=== PATIENT | male | born 1990 | race American Indian/Alaskan Native ===

== ENCOUNTER 2020-07-07 14:28 | Emergency (ER) | payer SELFPAY ==
--- NOTE | 2020-07-07 17:12 | Emergency Department Report ---
Chief Complaint: Back Pain/Injury Stated Complaint: BACK PAINS Time Seen by Provider: 07/07/20 17:04 - HPI History of Present Illness: She is a 29-year-old male presents emergency room complaints of right lower back pain that began a week ago. 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 He states he frequently does heavy lifting. He denies any fall or injury. He denies any fever, nausea, vomiting, diarrhea, urinary symptoms, dark urine, generalized body aches, numbness, weakness, bowel or bladder incontinence. No past medical history. No allergies to medications. He is ambulating without difficulty. Vitals are stable On exam: Non toxic appearing, no acute distress atraumatic, normocephalic normal appearance of the eyes, EOMI, no periorbital edema or ecchymosis moist mucus membranes regular heart rate and rhythm, no gallops, no rubs, no murmurs breath sounds are clear bilaterally, no w/r/r, no stridor, no research S, no accessory muscle use Right-sided lumbar paraspinal muscular tenderness palpation, no midline C-spine, T-spine, L-spine tenderness palpation, no step-offs, no deformities, full range of motion A&O x4, no focal neuro deficit, sensation intact throughout, 5 out of 5 muscle strength in the bilateral upper extremities and lower extremities, normal gait skin is warm, dry, intact Symptoms appear most consistent with mild lumbar strain Patient has no red flag warning signs of back pain, no trauma, no unexplained weight loss, no neuro deficits, age is not greater than 50, no fever, no IV drug use, no steroid use, no history of cancer Discussed supportive care and symptomatic treatment with patient Discussed the importance of primary care follow-up Discussed return precautions Medical screening examination performed and there is no threat to life or limb at this time - Exam Vital Signs: Vital Signs 07/07/20 17:08 Temperature 98.2 F Pulse Rate 66 Respiratory 16 Rate Blood Pressure 110/43 [Right] O2 Sat by Pulse 100 Oximetry MSE screening note: Focused history and physical exam performed. Due to findings the following was ordered: ED Disposition for MSE Clinical Impression: Lumbar strain Qualifiers: Encounter type: initial encounter Qualified Code(s): S39.012A - Strain of muscle, fascia and tendon of lower back, initial encounter Disposition: Z-07 MED SCREENING EXAM-LEFT Is pt being admited?: No Does the pt Need Aspirin: No Condition: Stable Instructions: Lumbar Strain Additional Instructions: Please alternate ibuprofen and Tylenol as needed for discomfort. May use ice pack, heating pad, rest, epsom salt bath. May rub area with [place] balm ointment. May do back stretches. Please to make sure that you are lifting correctly by starting with the leg muscles and gluteus muscles instead of just using your back to lift. Follow-up with your primary care doctor for reexamination. Return to emergency room for new or worsening symptoms. Referrals: JACINTO COLMENARES MD [Staff Physician] - 3-5 Days [facility] [Provider Group] - 3-5 Days [facility] [Outside] - 3-5 Days [facility], [LAB/CONTRACT] - 3-5 Days Forms: Work/School Release Form(ED) Time of Disposition: 17:10 Print Language: [place]
[2020-07-07 17:56] VITALS: BP 101/38
== END 2020-07-07 17:57 | disposition left against medical advice (07) ==
LOC: ED 14:28
DX: M54.9 Dorsalgia, unspecified (principal); Z53.21 Procedure and treatment not carried out due to patient leaving prior to being seen by health care provider